=== PATIENT | male | born 1970 | race Caucasian/White ===

== ENCOUNTER 2016-08-14 05:18 | Emergency (ER) | payer OTHER ==
[~2016-08-14] VITALS: Ht 180.3 cm; Wt 90.7 kg
[2016-08-14] MEDS ORDERED: FENOFIBRATE160 MG PO (05:23)
[2016-08-14] MEDS ORDERED: ESCITALOPRAM OX20 MG PO (05:23)
[2016-08-14] MEDS ORDERED: TOPAMAX 100 MG100 MG PO (05:23)
[2016-08-14] MEDS ORDERED: SUMATRIPTAN SU100 MG PO (05:23)
[2016-08-14 05:44] LABS: ABSOLUTE NEUTROPHILS 10.7 thou/uL (1.4-8.2); BASOPHILS 0.5 % (0.0-2.0); EOSINOPHILS 1.1 % (0.0-3.0); HEMATOCRIT 37.9 % (42.0-52.0); HEMOGLOBIN 13.1 gm/dL (14.0-18.0); LYMPHOCYTES 12.5 % (24.0-44.0); MCH 33.3 pg (26.0-34.0); MCHC 34.6 g/dL (28.0-37.0); MCV 96.1 fL (80.0-100.0); MONOCYTES 3.9 % (1.0-8.0); PLATELET COUNT 252 thou/uL (150-400); RBC 3.94 mil/uL (4.50-6.00); RDW 12.7 % (10.5-14.5)
[2016-08-14 05:48] LABS: CALCIUM 9.2 mg/dL (8.5-10.1); CREATININE 1.9 mg/dL (0.7-1.3); POTASSIUM 3.4 mmol/L (3.5-5.1)
[2016-08-14 05:51] LABS: MANUAL DIFF NO
[2016-08-14 05:52] LABS: ALBUMIN 4.3 g/dL (3.4-5.0); TOTAL BILIRUBIN 0.3 mg/dL (<0.1-1.0); TOTAL PROTEIN 8.1 g/dL (6.4-8.2)
[2016-08-14 07:28] LABS: URINE BILIRUBIN NEGATIVE (Negative); URINE BLOOD 1+ (Negative); URINE COLOR YELLOW; URINE GLUCOSE-RANDOM* NEGATIVE (Negative); URINE KETONES NEGATIVE (Negative); URINE LEUKOCYTES-REFLEX NEGATIVE (Negative); URINE PROTEIN (DIPSTICK) NEGATIVE (Negative); URINE UROBILINOGEN 0.2 E.U./dl (0.2-1.0)
[2016-08-14 07:39] LABS: AMORPHOUS URATES Few /LPF (None Seen); CASTS None Seen /LPF (None Seen); SQUAMOUS None Seen /LPF (0-3); URINE RBC None Seen /HPF (0-2)
[2016-08-14 07:43] LABS: URINE WBC-REFLEX None Seen /HPF (0-5)
[2016-08-14] MEDS ORDERED: NORCO 5-325 TA1 EACH PO (07:46)
[2016-08-14] MEDS ORDERED: CIPROFLOXACIN500 M1 PO (07:46)
[2016-08-14] MEDS ORDERED: ZOFRAN ODT4 MG PO (07:46)
[2016-08-14] MEDS ORDERED: FLOMAX0.4 MG PO (07:46)
[2016-08-14 08:23] VITALS: BP 121/76
== END 2016-08-14 07:49 | disposition home or self-care (01) ==
LOC: ER 05:18
PROVIDERS: Emergency Medicine
DX: N20.1 Calculus of ureter (principal); F12.10 Cannabis abuse, uncomplicated

== ENCOUNTER → 2016-12-16 | Outpatient (CLI) | payer BC, OTHER ==
[~2016-12-16] MED LIST: CIPROFLOXACIN500 M1 PO; ESCITALOPRAM OX20 MG PO; FENOFIBRATE160 MG PO; FLOMAX0.4 MG PO; NORCO 5-325 TA1 EACH PO; SUMATRIPTAN SU100 MG PO; TOPAMAX 100 MG100 MG PO; ZOFRAN ODT4 MG PO
== END ==
LOC: MRI 11-28 13:57
DX: M51.17 Intervertebral disc disorders with radiculopathy, lumbosacral region (principal)

== ENCOUNTER → 2017-01-27 | Outpatient (CLI) | payer BC, OTHER ==
[~2017-01-27] VITALS: Ht 177.8 cm; Wt 93.3 kg
[~2017-01-27] MED LIST changes: +FISH OIL 1,001000 M2 PO; +FLONASE 0.05%50 MCG NASAL; +NAPROSYN500 MG PO; +PROAIR HFA8.5 GM; +VITAMINC500 PO
--- NOTE | ~2017-01-27 | HPC ---
[facility] [place] [address] PAIN MANAGEMENT CONSULTATION Name: ELY PATTERSON [id number] Admission: 01/27/17 Attend Phys: Tae Boone DO Discharge: Date of : 70 Report #: [id number] THIS REPORT FOR: //name// CC: Rock Boone SUBJECTIVE: The patient is a very pleasant 46-year-old gentleman seen on 01/13/2017. We sought authorization for repeat epidural injection at that time. He prior had a single lumbar epidural injection on 12/23/2016, about 60% ongoing overall improvement. The patient notes he started to use an inversion type table, which is also helping with ongoing pain. Notes pain is fairly nominal, 1-2/10, but does exacerbate with standing and walking, primarily right L5 radicular pain pattern. PHYSICAL EXAMINATION: GENERAL: Shows a 46-year-old gentleman, BMI is 29.5 kilograms per meter squared. Ongoing 50% relief of baseline pain. VITAL SIGNS: Blood pressure 149/94, pulse 68, respirations 16. MUSCULOSKELETAL: Rises from chair using the armrest. Modestly antalgic gait. Positive straight leg raise on the right. Slight decreased right plantarflexion strength. DIAGNOSTIC DATA: We reviewed diagnostic findings including MRI from 12/16/2016, the L5-S1 does show central disk fairly broad-based protrusion consistent with an HNP. ASSESSMENT: Symptomatic lumbar radiculopathy. RECOMMENDATIONS: Repeat epidural injection under fluoroscopy today at L5, continue physical activity, stretching, range of motion and inversion "traction." Follow up simply as needed, we can do a third injection if symptoms become problematic. At present, given the good relief with the first injection, I am hopeful second injection will quiet the patient's symptoms to the point that he will not require further therapy. Continue naproxen p.r.n. Thank you for allowing me to participate in the patient's care. PROCEDURE: Lumbar epidural injection under fluoroscopy. PROCEDURE NOTE: After both written and informed consent to include risk of spinal cord damage, increased pain, weakness and dural puncture, the patient was taken to the fluoroscopy suite, placed in the prone position. After sterile prep and drape, a skin wheal with lidocaine was raised. A 22-gauge epidural Tuohy needle was inserted in the midline at L5-S1 with good loss to resistance. Negative aspiration for cerebrospinal fluid or blood was noted. Then 1 mL of Omnipaque under biplanar fluoroscopy showed good spread within the epidural space. This was followed with 80 mg of triamcinolone plus 1 mL of 1.5% [place] [id number] PAIN MANAGEMENT CONSULTATION Name: ELY PATTERSON Room #: REG ZOFIA Miner#: [id number] Admission: 01/27/17 Attend Phys: Tae Boone DO Discharge: Date of : 70 Report #: [id number] preservative-free Xylocaine, 0.5 mL Xylocaine was then injected to flush the needle; it was removed. The patient was monitored for an appropriate period of time and discharged in good and stable condition. <ELECTRONICALLY SIGNED> By: Tae Boone DO 01/30/17 0759 1111 [id number] Tae Boone DO /nt
[2017-01-27 09:59] VITALS: BP 149/94
== END | disposition home or self-care (01) ==
LOC: PAIN 06:42
DX: M54.16 Radiculopathy, lumbar region (principal); Z88.1 Allergy status to other antibiotic agents; Z98.890 Other specified postprocedural states

== ENCOUNTER → 2017-03-10 | Outpatient (CLI) | payer BC, OTHER ==
[~2017-03-10] VITALS: Ht 177.8 cm; Wt 92.3 kg
[~2017-03-10] MED LIST changes: +ATIVAN0.5 MG PO; +BUPRENORPHINE HC2 MG PO; +LAMICTAL 25 MG25 M1 PO; +NABUMETONE 500500 M1 PO; +PROBIOTIC1 EAC1 PO
--- NOTE | ~2017-03-10 | HPC ---
[facility] [place] [address] PAIN MANAGEMENT CONSULTATION Name: ELY PATTERSON Room #: REG [facility] Isidra#: [id number] Admission: 03/10/17 Attend Phys: Tae Boone DO Discharge: Date of : 70 Report #: [id number] THIS REPORT FOR: //name// CC: Rock Boone DATE OF SERVICE: 03/10/2017 HISTORY OF PRESENT ILLNESS: The patient is a 46-year-old gentleman. The patient was prior seen in the pain clinic on 12/23/2016 in consultation, given epidural injection at that time. He was seen in followup, last visit was on 01/27/2017, given epidural injection at L5-S1 with incremental improvement in baseline pain. The patient returns to the pain clinic today noting last injection afforded ongoing 98% relief; however, he still has pain in the right low back. He has seen a neurosurgeon at [facility], Dr. Da Silva. Dr. Da Silva specifically referred him back to us for consideration for medial branch diagnostic block, L5-S1, due to right low back pain. PHYSICAL EXAMINATION: Today shows a pleasant 46-year-old gentleman, again a significant relief in his lumbar radicular pain; however, axial back pain in the right side is exacerbated with standing and rotating. Tenderness over the right L5-S1 area. Really, no significant tenderness over the SI joint. ASSESSMENT: Symptomatic lumbar spondylosis in a gentleman, prior treated for lumbar radiculopathy. Again, 2 epidural injections afforded excellent relief of the radicular symptoms. We have been asked by the neurosurgeon to consider a medial branch block. After discussion with the patient today, we have elected to move forward with a right L5-S1 facet joint injection. If this affords good long-term relief, we will simply see as needed. If this affords transient relief, we will consider medial branch dorsal rami at L4 and L5, sufficient to cover the right L5-S1 facet joint. PROCEDURE: Right L5-S1 facet joint injection under fluoroscopy. PROCEDURE NOTE: After informed consent was obtained, the patient was taken to the fluoroscopy suite and placed in prone position. After sterile prep and drape, skin wheal was raised. A 22-gauge stylet needle was placed to contact the inferior aspect of the right L5-S1 facet joint. Negative aspiration was accomplished. AP and lateral projections showed good needle placement. A 40 mg triamcinolone plus 1 mL of 0.5% preservative-free bupivacaine was injected into and around the joint. Needle was removed. The area was [place] [address] PAIN MANAGEMENT CONSULTATION Name: ELY PATTERSON Room #: REG Caitlin Miner#: [id number] Admission: 03/10/17 Attend Phys: Tae Boone DO Discharge: Date of : 70 Report #: [id number] applied. Fluoroscopy time was under 10 seconds. The patient was monitored for an appropriate period of time, discharged in good and stable condition. <ELECTRONICALLY SIGNED> By: Tae Boone DO 03/13/17 0911 1625 0111 Tae Boone DO /nt
[2017-03-10 09:53] VITALS: BP 141/96
== END | disposition home or self-care (01) ==
LOC: PAIN 06:54
DX: M47.816 Spondylosis without myelopathy or radiculopathy, lumbar region (principal); Z98.890 Other specified postprocedural states; Z88.8 Allergy status to other drugs, medicaments and biological substances

== ENCOUNTER → 2017-08-24 | Outpatient (CLI) | payer OTHER ==
[~2017-08-24] VITALS: Ht 177.8 cm; Wt 92.3 kg
[~2017-08-24] MED LIST changes: -ATIVAN0.5 MG PO; -BUPRENORPHINE HC2 MG PO; -LAMICTAL 25 MG25 M1 PO; -NABUMETONE 500500 M1 PO
--- NOTE | ~2017-08-24 | HPC ---
[facility] [place] [address] PAIN MANAGEMENT CONSULTATION Name: ELY PATTERSON Room #: REG [facility] Tamara.#: [id number] Admission: 08/24/17 Attend Phys: Tae Boone DO Discharge: Date of : 70 Report #: [id number] THIS REPORT FOR: //name// CC: Rock Boone DATE OF SERVICE: 08/24/2017 The patient is a pleasant 47-year-old gentleman, prior seen in the pain clinic approximately 6 months ago, February 2017. I did a right L5-S1 facet joint injection at that time with very good improvement of pain. The patient prior had lumbar epidural injections at L5-S1 with some 98% relief of his lumbar radicular pain. The patient was somewhat lost to followup, returns to pain clinic today for moderately prolonged visit. He notes pain has recurred in the low back, right side, exacerbated with sitting, walking or lifting. He had worked at [employer], now works at [employer]. 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 He is a very hardworking gentleman. 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 It does exacerbate his right low back pain. He notes he does get occasional radicular pain down the right leg in what it sounds like an L5 radicular pattern. The patient takes naproxen 500 mg up to b.i.d. for pain. He really does not take any opiate analgesics or neuropathic pain medications. Medication list was reconciled today. He does use Advair and Flonase for some respiratory concerns, sumatriptan for migraine headaches, Lexapro for chronic anxiety and depression. PHYSICAL EXAMINATION: GENERAL: Reveals a pleasant 47-year-old gentleman, BMI is 29.2 kilograms per meter squared. VITAL SIGNS: Stable as noted in the EMR. NEUROLOGIC: Alert and oriented to person, place and time, judged to be a reasonable historian. Cervical range of motion is good. Upper extremity strength is preserved. HEART: Regular rate and rhythm without murmur. LUNGS: Clear to auscultation. MUSCULOSKELETAL: Rises from chair using armrest. Has tenderness over the right low back, pain is exacerbated with rotation and side bending. Nirmala test is negative. Gaenslen's test is negative. He does have slightly positive straight leg raise on the left, slight decreased plantar flexion strength. Review of diagnostic findings from 12/16/2016, MRI notes L5-S1 have a fairly [address] [address] PAIN MANAGEMENT CONSULTATION Name: ELY PATTERSON Room #: REG [facility]..#: [id number] Admission: 08/24/17 Attend Phys: Tae Boone DO Discharge: Date of : 70 Report #: [id number] broad-based disk protrusion consistent with a central disk bulge. Pars defect at L5 are present. ASSESSMENT: 1. Lumbosacral spondylosis without myelopathy, right L5-S1 facet mediated pain. 2. Lumbar radiculopathy, by history with right L5 radicular pain pattern. RECOMMENDATION: We have elected to proceed with a right L5-S1 facet joint injection today. If this does not afford adequate relief, we will consider a single right midline L5-S1 epidural injection for radicular pain component. If this affords good transient relief, we will consider medial branch dorsal rami diagnostic block at L4 and L5 and consideration of neurolysis of same. ASSESSMENT: Symptomatic lumbosacral spondylosis without myelopathy. PROCEDURE: Right L5-S1 facet joint injection under fluoroscopy. DESCRIPTION OF PROCEDURE: After written informed consent was obtained, the patient was taken to the fluoroscopy suite and placed in prone position. After sterile prep and drape, skin wheal was raised. A 22-gauge stylet needle was placed to contact the anterior aspect of the right L5-S1 facet. Negative aspiration was accomplished. AP and lateral projections showed good needle placement. 40 mg triamcinolone plus 1 mL of 0.5% preservative-free bupivacaine was injected into and around the joint. Needle was removed. The area was cleansed, Band-Aids applied. The patient monitored for an appropriate period of time, discharged in good and stable condition. We will have the patient monitor pain score for the next several hours. Followup scheduled for 7 days. <ELECTRONICALLY SIGNED> By: Tae Boone DO 08/25/17 0654 1236 [id number] Tae Boone DO /nt
[2017-08-24 08:09] VITALS: BP 135/93
== END | disposition home or self-care (01) ==
LOC: PAIN 08-07 07:15
DX: M47.817 Spondylosis without myelopathy or radiculopathy, lumbosacral region (principal); M51.16 Intervertebral disc disorders with radiculopathy, lumbar region; G43.909 Migraine, unspecified, not intractable, without status migrainosus; F41.9 Anxiety disorder, unspecified; F32.9 Major depressive disorder, single episode, unspecified; Z98.890 Other specified postprocedural states; Z79.899 Other long term (current) drug therapy; Z88.8 Allergy status to other drugs, medicaments and biological substances; Z79.51 Long term (current) use of inhaled steroids

== ENCOUNTER → 2017-09-07 | Outpatient (CLI) | payer OTHER ==
[~2017-09-07] VITALS: Ht 177.8 cm; Wt 89.4 kg
--- NOTE | ~2017-09-07 | HPC ---
[facility]iqu[facility] [place] [address] PAIN MANAGEMENT CONSULTATION Name: ELY PATTERSON [facility] [id number] Admission: 09/07/17 Attend Phys: Tae Boone DO Discharge: Date of : 70 Report #: [id number] THIS REPORT FOR: //name// CC: Rock Boone DATE OF SERVICE: 09/07/2017 The patient is a very pleasant 47-year-old gentleman, prior seen in the pain clinic 08/24/2017. We did a right L5-S1 facet joint injection at that time. The patient returns to pain clinic today noting the injection afforded near 100% relief for 5 days. Pain is gradually beginning to recur, rates it a 3-4 on a VAS. It is exacerbated with any weightbearing on the right side. Physical exam is unchanged. Pain is in the right low back, exacerbated with rotation and side bending. ASSESSMENT: Symptomatic right L5-S1 facet joint mediated pain (M47.817), lumbosacral spondylosis without myelopathy. Prior history of lumbar radiculopathy. RECOMMENDATION: Repeat L5-S1 facet joint injection under fluoroscopy today. Follow up simply as needed. Continue naproxen 500 mg b.i.d. PROCEDURE: Right L5-S1 facet joint injection under fluoroscopy. PROCEDURE NOTE: After written informed consent was obtained, the patient was taken to fluoroscopy suite, placed in prone position. After sterile prep and drape, skin wheal was raised. A 22-gauge stylet needle was placed to contact the inferior aspect of the right L5-S1 facet joint. Negative aspiration was accomplished. A 40 mg triamcinolone plus 1 mL of 0.5% preservative-free bupivacaine was injected into and around the joint. Needle was removed. The area was cleansed, Band-Aid was applied. The patient monitored for an appropriate period of time, discharged in good and stable condition. <ELECTRONICALLY SIGNED> By: Tae Boone DO 09/08/17 0829 1607 1823 Tae Boone DO /nt
[2017-09-07 08:09] VITALS: BP 122/82
== END | disposition home or self-care (01) ==
LOC: PAIN
DX: M47.817 Spondylosis without myelopathy or radiculopathy, lumbosacral region (principal)

== ENCOUNTER → 2017-09-27 | Outpatient (CLI) | payer OTHER ==
[~2017-09-27] VITALS: Ht 177.8 cm; Wt 88.5 kg
--- NOTE | ~2017-09-27 | HPC ---
[facility] [place] [address] PAIN MANAGEMENT CONSULTATION Name: ELY PATTERSON Room #: [facility] [id number] Admission: 09/27/17 Attend Phys: Rock Boone DO Discharge: Date of : 70 Report #: [id number] THIS REPORT FOR: //name// CC: Rock Almendarez DATE OF SERVICE: 09/27/2017 REFERRING PHYSICIAN: Rock Meraz DO CHIEF COMPLAINT: Low back pain, right lower extremity pain with paresthesias. HISTORY OF PRESENT ILLNESS: As you know, the patient is a 47-year-old male who has had various pain generators that have been addressed with injection therapies. The patient suffers from lumbar radiculopathy as well as what appears to be facet arthropathy of the lumbar spine. Findings on his MRI does show broad-based disk protrusion at L5-S1, also a pars defect noted at this level. The patient was referred to our service to trial injection therapies to determine if he would be amenable to such treatments. He returns today in followup visit stating the most recent intraarticular facet injection at the L5-S1 level provided no benefit. When reviewing the case further, it does appear that the patient was provided little or no benefit with any of the previous intra-articular facet injections based on his report today. His symptoms radiate from the back down the leg in a distribution that appears to be L5 with radiation all the way to the great toe. He indicates today pain level of 4-5/10, states pain is aching, sharp, shooting, electrical in sensation, exacerbated with sitting, walking, and lying down, improves with immobility and rest. He has returned today in followup visit to discuss options for treatment for suspected lumbar radicular symptoms. ALLERGIES: CEPHALEXIN. CURRENT MEDICATIONS: Lactobacillus, naproxen, albuterol, fluticasone, ascorbic acid, sumatriptan, escitalopram, and fenofibrate. SOCIAL HISTORY: The patient reports he is a nonsmoker, denies IV or illicit drug use. He is accompanied by a family member, present in room today. IMAGING: No new imaging available. PHYSICAL EXAMINATION: VITAL SIGNS: Blood pressure 125/82, pulse 67, respiratory rate 14 and unlabored, the patient is 100% on room air, height 5 feet 10 inches tall, weight 195.2 pounds, and BMI calculated 28. GENERAL: Well-developed, well-nourished, well-hydrated 47-year-old male, [address] [address] PAIN MANAGEMENT CONSULTATION Name: ELY PATTERSON Room #: REG [facility]#: [id number] Admission: 09/27/17 Attend Phys: Rock Boone DO Discharge: Date of : 70 Report #: [id number] appearing stated age, no acute distress, awake, alert and oriented x3. Pain rated somewhere between 4-5/10. HEENT: Normocephalic, atraumatic. Pupils are equal, round, and reactive to light. Extraocular muscles are intact. EXTREMITIES: Show no clubbing, no cyanosis, and no edema. MUSCULOSKELETAL: Lower extremity strength appears equal and symmetrical 5/5, muscle bulk and tone equal and symmetrical. Seated straight leg raising negative. Supine straight leg raising is mildly positive right. Nirmala's test negative. Modified Gaenslen's positive for some axial low back pain, no radiation of symptoms. Palpatory tenderness noted over the paraspinal musculature, lower lumbar spine, no spinous process tenderness. ASSESSMENT: 1. Lumbar radiculopathy. 2. Displacement of lumbar intervertebral disk with radiculopathy. 3. Lumbosacral spondylosis with radicular symptoms. 4. Lumbar degeneration. 5. Chronic intractable pain. PLAN: 1. The patient returns today in followup visit where he is reporting no improvement in symptoms with intraarticular facet injection provided at last visit. He returns to discuss other options for treatment. He describes pain that radiates from the back down the leg on what appears to be in L5 dermatomal distribution. Symptoms radiate all the way from the buttock to the great toe on the right. He states that with certain activities he can make symptoms occur transiently on the left side as well. This would correlate the findings at the L5-S1 level. We discussed with the patient the treatment options for lumbar radicular symptoms following was discussed today. The patient was advised the treatment options could include physical therapy, stretching exercise, and core strengthening; we discussed medication management with addition of a neuropathic pain medication and consistent nonsteroidal anti-inflammatory; we discussed epidural injections under fluoroscopic guidance and ultimately surgical options. After reviewing risks and benefits of all proposed treatment options, the patient requested epidural injection. The patient was advised risks and benefits of a lumbar epidural injection, these risks include, but not necessarily limited to bleeding, bruising, infection, worsening of pain, no relief of pain, also risk of temporary or permanent muscle weakness, temporary or permanent nerve damage, possible paralysis and . The patient states understood and wished to proceed. 2. No medication changes made at today's visit, the patient to continue current medical therapy as previously prescribed. 3. We will see the patient back in followup visit in 31 days. At that time, we will review the efficacy of today's epidural injection and determine if next in [address] [place] [address] PAIN MANAGEMENT CONSULTATION Name: ELY PATTERSON Room #: REG [facility].#: [id number] Admission: 09/27/17 Attend Phys: Rock Boone DO Discharge: Date of : 70 Report #: [id number] the series might be necessary. PROCEDURE NOTE DESCRIPTION OF PROCEDURE: L5-S1 right paramedian epidural steroid injection under fluoroscopic guidance. After obtaining written consent, the patient was taken back to fluoroscopy suite, placed in prone position with pillow under abdomen to decrease lumbar lordosis. Skin overlying lumbosacral area then prepped and draped in aseptic fashion. Lumbar intervertebral spaces were identified by AP fluoroscopy. Skin and subcutaneous tissue overlying target site of injection was anesthetized with 3 mL of 1% lidocaine. A 20-gauge 3-1/2-inch Tuohy needle advanced under fluoroscopic guidance towards the epidural space using right paramedian approach. Epidural space identified using loss of resistance to air technique. After negative aspiration for heme or cerebrospinal fluid, 1 mL of Omnipaque was injected. A lumbar epidurogram was confirmed using both AP and lateral fluoroscopy. After negative aspiration for heme or cerebrospinal fluid, 5 mL of a solution containing 2 mL 40 mg per mL, 80 mg total triamcinolone, 3 mL lidocaine 1% injected slowly. Needle retracted mcc, flushed with 1 mL of 1% lidocaine and removed. Sterile bandage placed over injection site. No new motor deficits present in lower extremity following procedure. The patient tolerated the procedure well, carefully escorted to recovery room in stable condition. No apparent complications. After meeting discharge criteria, the patient discharged home. <ELECTRONICALLY SIGNED> By: Rock Boone DO 09/29/17 0815 0714 1115 Rock Boone DO /nt
[2017-09-27 08:18] VITALS: BP 125/82
== END | disposition home or self-care (01) ==
LOC: PAIN 06:32
DX: M54.16 Radiculopathy, lumbar region (principal)

== ENCOUNTER → 2018-05-14 | Outpatient (CLI) | payer OTHER ==
[~2018-05-14] MED LIST changes: +ATIVAN0.5 MG PO; +BUPRENORPHINE HC2 MG PO; +LAMICTAL 25 MG25 M1 PO; +NABUMETONE 500500 M1 PO
== END ==
LOC: RAD 08:46
DX: Z01.818 Encounter for other preprocedural examination (principal); M43.26 Fusion of spine, lumbar region

== ENCOUNTER → 2019-06-26 | Outpatient (CLI) | payer OTHER | LOC: CAT 13:17 | DX: N20.0 Calculus of kidney (principal); N13.30 Unspecified hydronephrosis; N21.1 Calculus in urethra; M43.27 Fusion of spine, lumbosacral region; N28.89 Other specified disorders of kidney and ureter ==